=== PATIENT | male | born 1975 | race Hispanic/Latino ===

== ENCOUNTER 2018-06-29 00:01 | Emergency (ER) | payer OTHER ==
[2018-06-29 00:14] VITALS: BMI 34.8
[2018-06-29] MEDS ORDERED: Heparin 25,000units in D5W 0 UNITS/0 ML BAG IV ONE (00:17)
[2018-06-29 00:31] LABS: BASO # 0.1 K/uL (0.0-0.2); BASO % 1.1 % (0.0-2.0); EOS # 0.4 K/uL (0.0-0.7); EOS % 4.2 % (0.0-4.0); HEMOGLOBIN 15.8 g/dL (12.0-18.0); LYMPH # 3.4 K/uL (1.0-4.3); LYMPH % 37.6 % (20.0-40.0); MEAN CELL VOLUME 93.1 fl (80.0-94.0); MEAN CORPUSCULAR HEMOGLOBIN 30.5 pg (27.0-31.0); MEAN CORPUSCULAR HGB CONC 32.8 g/dL (33.0-37.0); MEAN PLATELET VOLUME 8.9 fl (7.2-11.7); MONO # 0.9 K/uL (0.0-0.8); NEUT # 4.3 K/uL (1.8-7.0); NEUT % 47.1 % (50.0-75.0); RBC 5.17 Mil/uL (4.40-5.90); RED CELL DISTRIBUTION WIDTH 15.6 % (11.5-14.5); WHITE BLOOD COUNT 9.2 K/uL (4.8-10.8)
--- NOTE | 2018-06-29 00:35 | ED PDOC ---
HPI: Chest Pain Time Seen by Provider: 06/29/18 00:14 Chief Complaint (Nursing): Chest Pain Chief Complaint (Provider): Chest Pain History Per: Patient History/Exam Limitations: no limitations Onset/Duration Of Symptoms: Hrs (x 1), Sudden Onset Current Symptoms Are (Timing): Still Present Quality: Tightness, "Pain" Alleviating Factors: None Additional Complaint(s): 42 year old male with a history of [place], CAD, HTN and high cholesterol presents to the ED for evaluation of chest pain and tightness associated with shortness of breath, sudden onset 1 hour prior to arrival. The pain is unusual for him and prompted him to wake his in order to be driven to the hospital. At the time of onset, he was drinking alcohol. Patient's reports he stopped taking his hypertension medications two months ago. Patient denies radiation to arms or other side of chest, nausea, diaphoresis, arm pain, headache and other compl aints. PMD: Dr. Mathias - Risk Factors TAD Risk Factors: Pos: Hypertension, Sudden Onset Of Pain Past Medical History Reviewed: Historical Data, Nursing Documentation, Vital Signs Vital Signs: Last Vital Signs Temp 98 F 06/29/18 00:14 Pulse 94 H 06/29/18 00:14 Resp 18 06/29/18 00:14 BP 175/110 H 06/29/18 00:14 Pulse Ox 95 06/29/18 00:14 - Medical History PMH: CAD, HTN, Hypercholesterolemia Other PMH: myocardial infarction (10-11 years ago) - Family History Family History: States: Unknown Family Hx - Social History Current smoker - smoking cessation education provided: Yes Alcohol: > 2 Drinks/Day Drugs: Denies - Allergies Allergies/Adverse Reactions: Allergies Allergy/AdvReac Type Severity Reaction Status Date / Time Penicillins Allergy RASH Verified 06/29/18 00:14 QUINN Risk Score for UA/NSTEMI - QUINN Risk Score Age > 64: NO 3 or more CAD Risk Factors: YES Known CAD (Stenosis greater than 50%): YES Aspirin use in past 7 days: NO Severe Angina: YES EKG ST changes greater than 0.5mm: YES QUINN Score: 4 Risk %: 20% Review of Systems ROS Statement: Except As Marked, All Systems Reviewed And Found Negative Cardiovascular: Positive for: Chest Pain (and tightness) Respiratory: Positive for: Shortness of Breath. Negative for: Cough Gastrointestinal: Negative for: Nausea, Abdominal Pain Physical Exam - Reviewed Nursing Documentation Reviewed: Yes Vital Signs Reviewed: Yes - Physical Exam Appears: Positive for: In Acute Distress (obese; possible alcohol on breath) Head Exam: Positive for: ATRAUMATIC, NORMAL INSPECTION, NORMOCEPHALIC Skin: Positive for: Normal Color, Warm, Dry Eye Exam: Positive for: EOMI, Normal appearance, PERRL Neck: Positive for: Normal, Painless ROM, Supple Cardiovascular/Chest: Positive for: Regular Rate, Rhythm. Negative for: Murmur Respiratory: Positive for: Normal Breath Sounds Gastrointestinal/Abdominal: Positive for: Normal Exam, Soft. Negative for: Tenderness Extremity: Positive for: Normal ROM. Negative for: Deformity Neurological/Psych: Positive for: Awake, Alert, Normal Tone. Negative for: Motor/Sensory Deficits - Laboratory Results Result Diagrams: 06/29/18 00:18 06/29/18 00:18 - ECG O2 Sat by Pulse Oximetry: 95 (RA) Pulse Ox Interpretation: Normal - Core Measure Core Measure Indicators: Code Heart - Critical Care Total Time (In Min): 30 Medical Decision Making Medical Decision Makin:11 Impression: chest pain, tightness and shortness of breath Initial Plan: --Blood type and screen --EKG --Alcohol --UDS --CPK --CMP --CBC --Troponin --PTT --PT -_CXR --Glucose 00:12 Code Heart activated; ASA given, Dr. Fay was called and sent the patient's EKG. EKG reveals lateral wall myocardial infarction. 00:20 [facility] is unable to accept patient for cardiac catheterization due to another Code Heart. Patient will be transferred to [facility]. 00:23 Dr. Escobedo, guest advisor from [facility] ([phone]), called and accepted patient. 00:28 Discussed case with ER doctor from [place] who is aware of patient. 00:[address] escobedo- --Brilinta 180 mg PO --NG 0.4 mg SL --Heparin 5,000 units IV pt states slight improvement in pain on reeval Pt left at 00:47 Scribe Attestation: Documented by Mansi Bates acting as a scribe for Parminder Roper MD. Provider Scribe Attestation: All medical record entries made by the Scribe were at my direction and personally dictated by me. I have reviewed the chart and agree that the record accurately reflects my personal performance of the history, physical exam, medical decision making, and the department course for this patient. I have also personally directed, reviewed, and agree with the discharge instructions and disposition. Disposition - Clinical Impression Clinical Impression: STEMI (ST elevation myocardial infarction) - Patient ED Disposition Is Patient to be Admitted: Yes Counseled Patient/Family Regarding: Studies Performed, Diagnosis - Disposition Disposition Time: 00:23 Condition: SERIOUS Forms: Goal Zero (Kazakh)
[2018-06-29 00:41] LABS: ALB/GLOB RATIO 1.1 (1.0-2.1); ALBUMIN 3.7 g/dL (3.5-5.0); CALCIUM 8.9 mg/dL (8.4-10.2)
[2018-06-29 00:44] VITALS: TEMP 98.9
[2018-06-29 00:45] VITALS: O2SAT 95
[2018-06-29 00:47] VITALS: BP 119/108; PULSE 98; RESP 17
[2018-06-29 00:53] LABS: TROPONIN I 0.029 ng/mL (0.00-0.120)
--- NOTE | 2018-06-29 09:06 | CARD ---
APPROVED REPORT Date of service: 06/29/2018 EKG Measurement Heart [id number] <Conclusion> Normal sinus rhythm Possible Inferior infarct, age undetermined Lateral injury pattern ACUTE FL / STEMI Abnormal ECG
--- NOTE | 2018-06-29 13:28 | RAD ---
Date of service: 06/29/2018 HISTORY: Chest pain. COMPARISON: No prior. FINDINGS: LUNGS: No active pulmonary disease. PLEURA: No significant pleural effusion identified, no pneumothorax apparent. CARDIOVASCULAR: No atherosclerotic calcification present Normal. OSSEOUS STRUCTURES: No significant abnormalities. VISUALIZED UPPER ABDOMEN: Normal. OTHER FINDINGS: None. IMPRESSION: No active disease.
== END 2018-06-29 00:48 | disposition short-term general hospital (02) ==
LOC: H.ER 00:01
DX: I21.3 ST elevation (STEMI) myocardial infarction of unspecified site (principal); E78.00 Pure hypercholesterolemia, unspecified; I10 Essential (primary) hypertension; I25.10 Atherosclerotic heart disease of native coronary artery without angina pectoris; Z88.0 Allergy status to penicillin; I25.2 Old myocardial infarction; F17.200 Nicotine dependence, unspecified, uncomplicated
CPT/HCPCS: 71045; 80053; 80320; 82550; 82948; 84484; 85025; 93005; 96374; 99285; J1644